=== PATIENT | male | born 1940 ===

== ENCOUNTER 2018-12-31 06:55 | Day surgery (SDC) | payer MEDICARE, BC ==
[2018-12-31] MEDS ORDERED: IV LACTATED RINGERS SOLUTION 1,000 ML BAG IV ONE (06:56)
[2018-12-31] MEDS ORDERED: IRR STERIL WATER FOR IRR 1000 ML BOTTLE IR ONE (06:56)
[2018-12-31] MEDS ORDERED: BALANCED SALT IRRIG SOLN COMB1 500 ML, EPINEPHRINE-PF 1:1000 0.5 MG IO ONE ×2 (07:00)
[2018-12-31] MEDS ORDERED: CIPROFLOXACIN 0.3% OPHT DROP 2.5 ML BOTTLE ONE (07:04)
[2018-12-31] MEDS ORDERED: KETOROLAC 0.5% OPHT DROP 3 ML BOTTLE ONE (07:04)
[2018-12-31] MEDS ORDERED: TROPICAMIDE 1% OPHT DROP 3 ML BOTTLE ONE (07:05)
[2018-12-31] MEDS ORDERED: CYCLOPENTOLATE 1% OPHT DROP 2 ML BOTTLE ONE (07:05)
[2018-12-31] MEDS ORDERED: PHENYLEPHRINE 2.5% OPHT DROP 2 ML BOTTLE ONE (07:05)
[2018-12-31] MEDS ORDERED: MOXIFLOXACIN HCL 3 ML OPHT DROPS ONE (07:09)
[2018-12-31] MEDS ORDERED: LIDOCAINE-MPF 2% 5 ML VIAL ONE (07:09)
[2018-12-31] MEDS ORDERED: TETRACAINE HCL 0.5% OPHT DROP 2 ML BOTTLE ONE (07:10)
[2018-12-31] MEDS ORDERED: NEO/POLYMYX B/DEXAME OPHT OINT 3.5 GM TUBE ONE (07:10)
[2018-12-31] MEDS ORDERED: BALANCED SALT IRRIG SOLN COMB2 15 ML IRRIG.SOLN ONE (07:10)
[2018-12-31] MEDS ORDERED: ACETYLCHOLINE CHLORIDE 1% OPHT 1 EA KIT ONE (07:10)
[2018-12-31] MEDS ORDERED: TIMOLOL MALEATE 0.5% OPHT DROP 5 ML BOTTLE ONE (07:10)
[2018-12-31] MEDS ORDERED: HYALURONATE SODIUM 12.8 MG/0.8 ML DISP.SYRIN ONE (07:11)
[2018-12-31] MEDS ORDERED: HYALURONIDASE,OVINE 200 UNITS/ML VIAL ONE (07:11)
[2018-12-31] MEDS ORDERED: HYALURONATE SODIUM 8.5 MG/0.85 ML DISP.SYRIN ONE (07:11)
[2018-12-31] MEDS ORDERED: BUPIVACAINE PF 0.5% 30 ML VIAL ONE (07:11)
[2018-12-31] MEDS ORDERED: FENTANYL CITRATE 100 MCG/2 ML AMPUL ONE (07:48)
== END 2018-12-31 10:30 | disposition home or self-care (01) ==
LOC: DS 06:55
PROVIDERS: ATTEND Ophthalmology
DX: E11.36 Type 2 diabetes mellitus with diabetic cataract (principal); I35.0 Nonrheumatic aortic (valve) stenosis; I48.91 Unspecified atrial fibrillation; I25.10 Atherosclerotic heart disease of native coronary artery without angina pectoris; F32.9 Major depressive disorder, single episode, unspecified; E11.42 Type 2 diabetes mellitus with diabetic polyneuropathy; M54.5 Low back pain; E66.9 Obesity, unspecified; Z79.899 Other long term (current) drug therapy; Z98.890 Other specified postprocedural states
CPT/HCPCS: 66984; 71045; J0171; J3010; J3471; J3490 ×2; J7120 ×2; J7321 ×2; V2632; A4217; A4663

== ENCOUNTER 2019-04-29 06:29 | Day surgery (SDC) | payer MEDICARE, BC ==
[2019-04-29] MEDS ORDERED: IRR STERIL WATER FOR IRR 1000 ML BOTTLE IR ONE (06:30)
[2019-04-29] MEDS ORDERED: KETOROLAC 0.5% OPHT DROP 3 ML BOTTLE ONE (06:47)
[2019-04-29] MEDS ORDERED: TROPICAMIDE 1% OPHT DROP 3 ML BOTTLE ONE (06:47)
[2019-04-29] MEDS ORDERED: CYCLOPENTOLATE 1% OPHT DROP 2 ML BOTTLE ONE (06:47)
[2019-04-29] MEDS ORDERED: CIPROFLOXACIN 0.3% OPHT DROP 2.5 ML BOTTLE ONE (06:47)
[2019-04-29] MEDS ORDERED: PHENYLEPHRINE 2.5% OPHT DROP 2 ML BOTTLE ONE (06:48)
[2019-04-29] MEDS ORDERED: BALANCED SALT IRRIG SOLN COMB1 500 ML, EPINEPHRINE-PF 1:1000 0.5 MG IO ONE ×2 (07:00)
[2019-04-29] MEDS ORDERED: LIDOCAINE-MPF 2% 5 ML VIAL ONE (07:07)
[2019-04-29] MEDS ORDERED: TIMOLOL MALEATE 0.5% OPHT DROP 5 ML BOTTLE ONE (07:07)
[2019-04-29] MEDS ORDERED: NEO/POLYMYX B/DEXAME OPHT OINT 3.5 GM TUBE ONE (07:07)
[2019-04-29] MEDS ORDERED: MOXIFLOXACIN HCL 3 ML OPHT DROPS ONE (07:07)
[2019-04-29] MEDS ORDERED: HYALURONIDASE,OVINE 200 UNITS/ML VIAL ONE (07:08)
[2019-04-29] MEDS ORDERED: ACETYLCHOLINE CHLORIDE 1% OPHT 1 EA KIT ONE (07:08)
[2019-04-29] MEDS ORDERED: TETRACAINE HCL 0.5% OPHT DROP 2 ML BOTTLE ONE (07:08)
[2019-04-29] MEDS ORDERED: BALANCED SALT IRRIG SOLN COMB2 15 ML IRRIG.SOLN ONE (07:08)
[2019-04-29] MEDS ORDERED: BUPIVACAINE PF 0.5% 30 ML VIAL ONE (07:08)
[2019-04-29] MEDS ORDERED: HYALURONATE SODIUM 12.8 MG/0.8 ML DISP.SYRIN ONE (07:08)
[2019-04-29] MEDS ORDERED: FENTANYL CITRATE 100 MCG/2 ML AMPUL ONE (07:57)
[2019-04-29] MEDS ORDERED: BALANCED SALT IRRIG SOLN COMB1 500 ML ONE (08:31)
== END 2019-04-29 09:55 | disposition home or self-care (01) ==
LOC: DS 06:29
PROVIDERS: ATTEND Ophthalmology
DX: E11.36 Type 2 diabetes mellitus with diabetic cataract (principal); Z68.30 Body mass index [BMI] 30.0-30.9, adult; E78.2 Mixed hyperlipidemia; I25.10 Atherosclerotic heart disease of native coronary artery without angina pectoris; I45.10 Unspecified right bundle-branch block; Z79.899 Other long term (current) drug therapy; I48.91 Unspecified atrial fibrillation; Z95.5 Presence of coronary angioplasty implant and graft; F32.9 Major depressive disorder, single episode, unspecified; E11.42 Type 2 diabetes mellitus with diabetic polyneuropathy; E78.00 Pure hypercholesterolemia, unspecified; M54.5 Low back pain; E66.9 Obesity, unspecified; Z98.890 Other specified postprocedural states
CPT/HCPCS: 66984; 71045; 82962; J0171; J3010; J3471; J3490 ×2; J7120; J7321; V2632; A4217; A4663